=== PATIENT | female | born 2000 | race Caucasian/White ===

== ENCOUNTER 2021-03-05 18:43 | Emergency (ER) | payer OTHER ==
[~2021-03-05] VITALS: Ht 157.5 cm; Wt 54.4 kg
== END 2021-03-05 21:52 | disposition home or self-care (01) ==
LOC: ER1 18:43
DX: O98.512 Other viral diseases complicating pregnancy, second trimester (principal); U07.1 COVID-19; Z3A.19 19 weeks gestation of pregnancy; Z23 Encounter for immunization
CPT/HCPCS: 71045; 99283; M0243

== ENCOUNTER 2021-04-11 18:45 | Outpatient (CLI) | payer OTHER | END 2021-04-11 21:58 | disposition home or self-care (01) | LOC: GENOP 18:45 | PROVIDERS: Obstetrics & Gynecology | DX: O47.02 False labor before 37 completed weeks of gestation, second trimester (principal); Z3A.25 25 weeks gestation of pregnancy | CPT/HCPCS: 80307; 81001; 96360 ==

== ENCOUNTER 2021-07-22 16:31 | Inpatient (IN) | payer OTHER ==
[~2021-07-22] VITALS: Ht 157.5 cm; Wt 73.0 kg
[2021-07-22 17:00] LABS: HEMOGLOBIN 10.8 gm/dl (12.3-15.3); RED BLOOD COUNT 3.67 M/UL (4.00-5.10); WHITE BLOOD COUNT 9.1 K/UL (4.5-11.0)
[2021-07-22] MEDS ORDERED: PRENATAL VITAM1 EAC8 PO (18:04)
[2021-07-22] MEDS ORDERED: FERROUS SULFAT325 M2 PO (18:05)
[2021-07-24 03:23] LABS: HEMOGLOBIN 10.6 gm/dl (12.3-15.3)
[2021-07-24] MEDS ORDERED: IBUPROFEN800 MG PO (14:29)
[2021-07-24] MEDS ORDERED: COLACE 100MG C100 MG PO (14:29)
[2021-07-24] MEDS ORDERED: HYDROCODON-ACE1 EAC4 PO (14:29)
== END 2021-07-24 19:19 | disposition home or self-care (01) | DRG 807 ==
LOC: GENOP 16:31 → OB 22:20
PROVIDERS: Obstetrics & Gynecology; ADMIT Obstetrics & Gynecology
PROC: 4A1HXCZ Monitoring of Products of Conception, Cardiac Rate, External Approach (ICD-10-PCS; 2021-07-22)
PROC: 10E0XZZ Delivery of Products of Conception, External Approach (ICD-10-PCS; principal; 2021-07-23)
PROC: 10907ZC Drainage of Amniotic Fluid, Therapeutic from Products of Conception, Via Natural or Artificial Opening (ICD-10-PCS; 2021-07-23)
PROC: 0HQ9XZZ Repair Perineum Skin, External Approach (ICD-10-PCS; 2021-07-23)
DX: O70.0 First degree perineal laceration during delivery (principal); Z37.0 Single live birth; Z3A.39 39 weeks gestation of pregnancy; Z20.822 Contact with and (suspected) exposure to COVID-19; O69.81X0 Labor and delivery complicated by cord around neck, without compression, not applicable or unspecified
CPT/HCPCS: 36415; 81001; 82800; 85014; 85018; 85025; J2590; J7030